=== PATIENT | male | born 1960 | race Caucasian/White ===

== ENCOUNTER 2016-12-30 19:44 | Emergency (ER) | payer OTHER ==
[2016-12-30 20:08] VITALS: BP 133/95; PULSE 74; TEMP 97.7; BMI 29.5
--- NOTE | 2016-12-30 20:31 | PDOC ---
History of Present Illness - General Chief Complaint: Pain Stated Complaint: METAL IN FINGER Time Seen by Provider: 12/30/16 20:15 History Source: Patient Exam Limitations: No Limitations - History of Present Illness Initial Comments: 12/30/16 20:27 56yo Male patient w/ PmHx: Lyme Disease presents to ED c/o right ring finger infection. 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 He states he went home and soaked hand in peroxide, and opened wound more with sterile safety pin. Patient noticed finger swelling and getting red and is concerned with infection. He denies fever, cough, CP, diff breathing, Pain, or any other complaints at this time. Tetanus: 2016. PCP- None. Past History - Travel Traveled outside of the country in the last 30 days: No Close contact w/someone who was outside of country & ill: No - Past Medical History Allergies/Adverse Reactions: Allergies Allergy/AdvReac Type Severity Reaction Status Date / Time No Known Allergies Allergy Verified 12/30/16 19:56 Home Medications: Ambulatory Orders Clindamycin [Cleocin -] 300 mg PO Q6H #28 capsule 12/30/16 Other medical history: Pt denies - Psycho/Social/Smoking Cessation Hx Anxiety: No Suicidal Ideation: No Smoking History: Current every day smoker Have you smoked in the past 12 months: Yes Number of Cigarettes Smoked Daily: 10 Information on smoking cessation initiated: No Hx Alcohol Use: No Drug/Substance Use Hx: No Substance Use Type: Alcohol Review of Systems - Review of Systems Able to Perform ROS?: Yes Is the patient limited Hungarian proficient: No Integumentary: Yes: Erythema, Other (Swelling of right ring finger.) All Other Systems: Reviewed and Negative *Physical Exam - Vital Signs Last Vital Signs Temp Pulse Resp BP Pulse Ox 97.7 F 74 18 133/95 98 12/30/16 19:56 12/30/16 19:56 12/30/16 19:56 12/30/16 19:56 12/30/16 19:56 - Physical Exam General Appearance: Yes: Nourished, Appropriately Dressed. No: Apparent Distress, Mild Distress, Moderate Distress, Severe Distress Respiratory/Chest: positive: Lungs Clear, Normal Breath Sounds. negative: Chest Tender, Respiratory Distress, Accessory Muscle Use, Labored Respiration, Rapid RR Cardiovascular: positive: Regular Rhythm, Regular Rate Gastrointestinal/Abdominal: positive: Normal Bowel Sounds, Soft. negative: Distended, Guarding, Rebound, Tenderness Musculoskeletal: positive: Normal Inspection. negative: CVA Tenderness, Decreased Range of Motion, Vertebral Tenderness Extremity: positive: Normal Capillary Refill, Normal Inspection, Normal Range of Motion. negative: Pedal Edema, Swelling, Calf Tenderness, Erythema, Inflammation Integumentary: positive: Normal Color, Dry, Warm, Erythema, Swelling, Other ( Right Ring Finger) Neurologic: positive: leadership program intern II-XII NML intact, Fully Oriented, Alert, Normal Mood/ Affect, Normal Response, Motor Strength 5/5 *DC/Admit/Observation/Transfer Diagnosis at time of Disposition: Cellulitis and abscess of finger, unspecified - Discharge Dispostion Disposition: HOME Condition at time of disposition: Unchanged/Unknown Admit: No - Prescriptions Prescriptions: Clindamycin [Cleocin -] 300 mg PO Q6H #28 capsule - Referrals Referrals: Светлана Millan MD [Staff Physician] - - Patient Instructions Printed Discharge Instructions: DI for Cellulitis -- Adult Additional Instructions: FOLLOW UP WITH DR. MILLAN (INTERNAL MEDICINE), CALL TO SCHEDULE APPOINTMENT TO ESTABLISH CARE. TAKE MEDICATIONS PRESCRIBED. MOTRIN OR TYLENOL FOR PAIN NEEDED. IF SYMPTOMS WORSEN, OR ANY CONCERNS OVER THE NEXT 48 HOURS RETURN FOR FURTHER EVALUATION. Print Language: ARABIC
[2016-12-30] MEDS ORDERED: CLINDAMYCIN HCL 150 MG CAPSULE (FP) PO ONE (20:33)
[2016-12-30] MEDS ORDERED: CLINDAMYCIN HCL 150 MG CAPSULE (FP) ONE (20:36)
== END 2016-12-30 20:51 | disposition home or self-care (01) ==
LOC: JER 19:44
DX: S61.204A Unspecified open wound of right ring finger without damage to nail, initial encounter (principal); L03.011 Cellulitis of right finger; W29.3XXA Contact with powered garden and outdoor hand tools and machinery, initial encounter; Y93.H2 Activity, gardening and landscaping; Y92.89 Other specified places as the place of occurrence of the external cause; Y99.0 Civilian activity done for income or pay
CPT/HCPCS: 99281-25